=== PATIENT | male | born 1990 | race African-American/Black ===

== ENCOUNTER 2016-11-22 12:12 | Emergency (ER) | payer OTHER ==
[~2016-11-22] VITALS: Ht 182.9 cm; Wt 77.1 kg
[2016-11-22 14:04] VITALS: BP 141/75
[2016-11-22] MEDS ORDERED: diazePAM 5 MG TABLET PO SCH (15:00)
[2016-11-22] MEDS ORDERED: CYCL-331 PO (15:00)
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
== END 2016-11-22 15:10 | disposition home or self-care (01) ==
LOC: ER 12:12
DX: M62.838 Other muscle spasm (principal); R51 Headache; M54.2 Cervicalgia; V89.2XXA Person injured in unspecified motor-vehicle accident, traffic, initial encounter; Y93.89 Activity, other specified; Y99.8 Other external cause status; Y92.89 Other specified places as the place of occurrence of the external cause
CPT/HCPCS: 99283

== ENCOUNTER 2018-02-09 12:52 | Emergency (ER) | payer OTHER ==
[~2018-02-09] VITALS: Ht 182.9 cm; Wt 80.3 kg
[~2018-02-09 12:52] MED LIST: CYCL-331 PO
--- NOTE | 2018-02-09 13:38 | EKG ---
[address] [address] Test Date: 2018-02-09 Test Time: 13:34:29 Pat Name: PARKER WATLERS Department: Room: Gender: M Treasury Manager: : 1990 Requested By: GREGORIO WING Order Number: [id number] Reading MD: Measurements Intervals [place] Rate: 61 P: 13 AR: 166 QRS: 59 QRSD: 100 T: 19 QT: 394 QTc: 398 Interpretive Statements SINUS RHYTHM NO SPECIFIC ECG ABNORMALITIES RI6.01 Unconfirmed report No previous ECG available for comparison
[2018-02-09] MEDS ORDERED: MVI, ADULT NO.4 WITH VIT K 10 ML, FOLIC ACID SYRINGE for ER 1 MG, THIAMINE INJ 100 MG, ... IV ONE ×5 (13:45)
[2018-02-09 13:54] LABS: BASO % 1 % (0-3); EOS # 0.2 x10^3/uL (0.0-0.7); EOS % 4 % (0-3); HEMATOCRIT 44.6 % (39.0-53.0); LYMPH # 1.7 x10^3/uL (1.0-4.8); LYMPH % 34 % (24-48); MEAN CORPUSCULAR HEMOGLOBIN 27 pg (25-35); MEAN CORPUSCULAR HGB CONC 34 g/dL (31-37); MEAN CORPUSCULAR VOLUME 80 fL (79-100); MONO # 0.5 x10^3/uL (0.0-1.1); MONO % 9 % (0-9); NEUT # 2.6 x10^3uL (1.8-7.7); NEUT % 52 % (31-73); PLATELET COUNT 326 x10^3/uL (140-400); RED BLOOD COUNT 5.56 x10^6/uL (4.30-5.70); RED CELL DISTRIBUTION WIDTH 13.8 % (11.5-14.5)
--- NOTE | 2018-02-09 13:56 | PHYS DOC ---
Past History Past Medical History: Depression, Schizophrenia Past Surgical History: No Surgical History Alcohol Use: Heavy Drug Use: Cocaine, Marijuana, Methamphetamine, Opiates Adult General Chief Complaint Chief Complaint: SUICDAL IDEATION HPI HPI Patient is a 27 year old male who presents with suicidal and homicidal ideation. Patient does not have any specific targeted for the homicidal ideation more a generalized feeling. Patient has been doing self-harm behaviors with drinking "a lot" of alcohol as well as a history of doing illicit drugs. He has cut out the illicit drugs except for marijuana at this time. Last use of marijuana was earlier today. Patient also reports drinking earlier today. 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 Nothing seems to make the symptoms better or worse. Patient does have a history of previous evaluation and treatment for depression while he was in the , he was on Zoloft as well as a medicine to help him sleep. After leaving the he has not refilled these medicines and has not been on them for months.[] Review of Systems Review of Systems Constitutional: Denies fever or chills [] Eyes: Denies change in visual acuity, redness, or eye pain [] HENT: Denies nasal congestion or sore throat [] Respiratory: Denies cough or shortness of breath [] Cardiovascular: No chest pain or palpitations[] GI: Denies abdominal pain, nausea, vomiting, bloody stools or diarrhea [] : Denies dysuria or hematuria [] Musculoskeletal: Denies back pain or joint pain [] Integument: Denies rash or skin lesions [] Neurologic: Denies headache, focal weakness or sensory changes [] Endocrine: Denies polyuria or polydipsia [] All other systems were reviewed and found to be within normal limits, except as documented in this note. Family History Family History Not currently available. Current Medications Current Medications Current Medications Medications (Trade) Dose Ordered Sig/Ricci Start Time Stop Time Status Last Admin Dose Admin Multivitamins/ Minerals 10 ml/ Folic Acid 1 mg/ Thiamine HCl 100 mg/Magnesium Sulfate 2 gm/ Sodium Chloride 1,015.2 ml @ 1,000 mls/ hr 1X ONCE 02/09/18 13:45 02/09/18 14:45 Allergies Allergies Allergies Coded Allergies Type Severity Reaction Last Updated Verified No Known Drug Allergies 11/22/16 No Physical Exam Physical Exam Constitutional: Well developed, well nourished, no acute distress, non-toxic appearance. [] HENT: Normocephalic, atraumatic, bilateral external ears normal, oropharynx moist, no oral exudates, nose normal. [] Eyes: PERRLA, EOMI, conjunctiva normal, no discharge. [] Neck: Normal range of motion, no tenderness, supple, no stridor. [] Cardiovascular:Heart rate regular rhythm, no murmur [] Lungs & Thorax: Bilateral breath sounds clear to auscultation [] Abdomen: Bowel sounds normal, soft, no tenderness, no masses, no pulsatile masses. [] Skin: Warm, dry, no erythema, no rash. [] Back: No tenderness, no CVA tenderness. [] Extremities: No tenderness, no cyanosis, no clubbing, ROM intact, no edema. [] Neurologic: Alert and oriented X 3, normal motor function, normal sensory function, no focal deficits noted. [] Psychologic: Affect flat, suicidal and homicidal ideation. No specific plan. [] Current Patient Data Vital Signs Vital Signs Date Time Temp Pulse Resp B/P (MAP) Pulse Ox O2 Delivery O2 Flow Rate FiO2 02/09/18 12:52 98.1 78 20 98 Room Air EKG EKG EKG shows a normal sinus rhythm at 61 bpm, no ST elevation, normal axis, normal QTC, no prolongation of the terminal 40 ms of the QRS in lead aVR[] Radiology/Procedures Radiology/Procedures [] Impressions: 1. Hx of Schizoaffective Disorder 2. Hx. of Alcohol use (68) and Polysubstance Abuse 3. Hx. of Depression 4. Suicidal Ideation Course & Med Decision Making Course & Med Decision Making Pertinent Labs and Imaging studies reviewed. (See chart for details) Medical decision making: No evidence of a significant toxidrome requiring intervention, no evidence of acetaminophen or salicylate toxicity. Patient's alcohol level was 68. Patient appears to be medically stable for mental health evaluation. ED course: Patient arrived, was placed in bed, and tolerated exam well. Patient had IV access established and was given a "banana bag" consisting of saline, multivitamins, folate, thiamine, and magnesium given his reported history of significant alcohol use. At approximately 1535 patient reported that his IV accidentally came out. A new one was not restarted. He had received all of the IV fluids. [facility] was contacted for mental health screening for inpatient care.[] 1899 - Still awaiting placement. Pt. requesting meds. for his agitation. Pt. polite and cooperative, but concerned he may act out. Rx po Ativan, Benadryl and Zyprexa . 1999- Still awaiting placement. Pt. currently sleeping. 2099- [facility]- accepting pt. in transfer. Dr. Moore accepting. 2129- Pt. tolerating fluids. States the meds have helped his agitation. Reviewed transfer to [facility]- Pt. still agreeable to transfer. 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 Pt. states he feels he needs inpatient care currently. Pt. reports his is currently deployed to [place] and he has no one to help him through his current depression exacerbation. Remains polite and cooperative. Dragon Disclaimer Dragon Disclaimer This electronic medical record was generated, in whole or in part, using a voice recognition dictation system. Departure Departure: Referrals: PCP,PINEDA (PCP) GREGORIO WING DO Feb 09, 2018 13:56 TRAE SEAMAN MD Feb 09, 2018 19:06
[2018-02-09 14:07] LABS: ALBUMIN 4.2 g/dL (3.4-5.0); CALCIUM 8.5 mg/dL (8.5-10.1); CREATININE 0.8 mg/dL (0.7-1.3); GFR 138.3; MAGNESIUM 2.2 mg/dL (1.8-2.4); POTASSIUM 3.3 mmol/L (3.5-5.1); TOTAL BILIRUBIN 0.4 mg/dL (0.2-1.0); TOTAL PROTEIN 8.3 g/dL (6.4-8.2)
[2018-02-09 14:09] LABS: ACETAMIN < 2.0 mcg/mL (10-30); ETHANOL 68 mg/dL (0-10); SALIC 4.4 mg/dL (2.8-20.0)
[2018-02-09 15:42] LABS: AMPHETAMINE/METHAMPHETAMINE NEG (NEG); BARBITURATES NEG (NEG); BENZODIAZEPINES NEG (NEG); CANNABINOIDS NEG (NEG); COCAINE NEG (NEG); METHADONE NEG (NEG); OPIATES NEG (NEG); PHENCYCLIDINE NEG (NEG)
[2018-02-09 15:48] LABS: BILIRUBIN,URINE NEG (NEG); CLARITY,URINE CLEAR; COLOR,URINE YELLOW; GLUCOSE,URINE NEG (NEG)
[2018-02-09 15:49] LABS: BACTERIA,URINE 0 /HPF (0-FEW); NITRITE,URINE NEG (NEG); RBC,URINE OCC /HPF (0-2); SQUAMOUS EPITHELIAL CELL,UR OCC /LPF; UROBILINOGEN,URINE 0.2 mg/dL (0.2 mg/dL)
[2018-02-09] MEDS ORDERED: NICOTINE 21MG PATCH. TD ONE ×2 (18:03→18:15)
[2018-02-09] MEDS ORDERED: OLANZapine 2.5 MG TABLET PO ONE (19:30)
[2018-02-09] MEDS ORDERED: diphenhydrAMINE HCL 25 MG CAPSULE PO ONE (19:30)
[2018-02-09] MEDS ORDERED: LORazepam 1 MG TABLET PO ONE (19:30)
[2018-02-09 20:30] VITALS: BP 134/86
== END 2018-02-09 21:40 | disposition short-term general hospital (02) ==
LOC: ER 12:52
DX: R45.851 Suicidal ideations (principal); R45.850 Homicidal ideations; F25.9 Schizoaffective disorder, unspecified; F32.9 Major depressive disorder, single episode, unspecified; F12.10 Cannabis abuse, uncomplicated; F14.10 Cocaine abuse, uncomplicated; F15.10 Other stimulant abuse, uncomplicated; F11.10 Opioid abuse, uncomplicated; F10.229 Alcohol dependence with intoxication, unspecified; Y90.3 Blood alcohol level of 60-79 mg/100 ml
CPT/HCPCS: 36415; 80053; 80307; 81001; 83735; 84443; 85025; 85610; 93005; 96365; 99285; G0480; G6039; Q0163; 82003; J7030